=== PATIENT | female | born 2000 | race Caucasian/White ===

== ENCOUNTER 2019-02-12 21:26 | Inpatient (IN) | payer OTHER ==
[~2019-02-12] VITALS: Ht 162.6 cm; Wt 57.6 kg
== END 2019-02-20 08:48 | disposition home or self-care (01) | DRG 833 ==
LOC: ER 21:26 → OB/GYN 02-13 03:57
PROVIDERS: ADMIT Obstetrics & Gynecology
PROC: BY4CZZZ Ultrasonography of Second Trimester, Single Fetus (ICD-10-PCS; principal; 2019-02-14)
DX: O23.02 Infections of kidney in pregnancy, second trimester (principal); O99.012 Anemia complicating pregnancy, second trimester; Z34.02 Encounter for supervision of normal first pregnancy, second trimester; B96.29 Other Escherichia coli [E. coli] as the cause of diseases classified elsewhere

== ENCOUNTER 2019-05-11 16:31 | Outpatient (CLI) | payer OTHER ==
[2019-05-11] MEDS ORDERED: PRENATAL TABLE1 EAC1 PO (18:01)
== END 2019-05-12 10:50 | disposition home or self-care (01) ==
LOC: OBS/DEL 16:31
DX: O35.8XX0 Maternal care for other (suspected) fetal abnormality and damage, not applicable or unspecified (principal); Z34.03 Encounter for supervision of normal first pregnancy, third trimester; O26.893 Other specified pregnancy related conditions, third trimester; N93.0 Postcoital and contact bleeding; O46.8X3 Other antepartum hemorrhage, third trimester

== ENCOUNTER 2019-06-28 19:00 | Inpatient (IN) | payer OTHER ==
[~2019-06-28] VITALS: Ht 152.4 cm; Wt 150.0 kg
[~2019-06-28 19:00] MED LIST: PRENATAL TABLE1 EAC1 PO
== END 2019-07-01 11:07 | DRG 807 ==
LOC: OBS/DEL 19:00 → LDR 21:24 → OB/GYN 21:24
PROVIDERS: ADMIT Obstetrics & Gynecology
PROC: 4A1HXCZ Monitoring of Products of Conception, Cardiac Rate, External Approach (ICD-10-PCS; 2019-06-28)
PROC: 10E0XZZ Delivery of Products of Conception, External Approach (ICD-10-PCS; principal; 2019-06-29)
PROC: 0HQ9XZZ Repair Perineum Skin, External Approach (ICD-10-PCS; 2019-06-29)
DX: O70.0 First degree perineal laceration during delivery (principal); Z37.0 Single live birth; Z3A.39 39 weeks gestation of pregnancy; Z22.330 Carrier of Group B streptococcus